=== PATIENT | female | born 1945 | race Hispanic/Latino ===

== ENCOUNTER 2016-11-18 13:20 | Emergency (ER) | payer OTHER ==
[~2016-11-18] VITALS: Ht 167.6 cm; Wt 75.3 kg
--- NOTE | 2016-11-18 13:49 | ED GI/GU/ABDOMINAL COMPLAINT ---
History of Present Illness General Chief Complaint: Nausea, Vomiting, Diarrhea Stated Complaint: VOMITING Source: family, user experience architect Exam Limitations: clinical condition, dementia Vital Signs & Intake/Output Vital Signs & Intake/Output Vital Signs Date Time Temp Pulse Resp B/P Pulse O2 O2 Flow FiO2 Ox Delivery Rate 11/18 1614 97.6 88 18 119/64 96 Room Air 11/18 1423 Room Air 11/18 1329 97.7 83 20 139/82 97 Room Air Allergies Coded Allergies: No Known Allergies (11/18/16) Reconcile Medications Alprazolam 0.5 MG TABLET 1 TAB PO Q8 ANXIETY (Reported) Amlodipine Besylate 5 MG TABLET 1 TAB PO DAILY HEART (Reported) Aspirin (Ecotrin*) 81 MG TABLET.DR 1 TAB PO DAILY HEART HEALTH (Reported) Atorvastatin Calcium (Lipitor) 20 MG TABLET 1 TAB PO DAILY CHOLESTEROL ( Reported) Donepezil HCl (Aricept) 10 MG TABLET 1 TAB PO QPM DEMENTIA (Reported) Gabapentin 100 MG CAPSULE 1 CAP PO QPM NEUROPATHY (Reported) Galantamine HBr (Razadyne ER) 16 MG CAP24H.PEL 1 CAP PO DAILY UNKNOWN ( Reported) Hydrochlorothiazide 25 MG TABLET 1 TAB PO DAILY WATER PILL (Reported) Hyoscyamine (Levsin) 0.125 MG TABLET 1 TAB PO Q4 PRN ABDOMINAL DISCOMFORT Irbesartan (Avapro) 300 MG TABLET 1 TAB PO DAILY HEART (Reported) Lisinopril 20 MG TABLET 1 TAB PO DAILY HEART (Reported) Memantine HCl (Namenda) 10 MG TABLET 1 TAB PO BID ALZHEIMER (Reported) Nabumetone 750 MG TABLET 1 TAB PO BID ARTHRITIS (Reported) Ondansetron (Zofran Odt) 4 MG TAB.RAPDIS 1 TAB SL TID PRN NAUSEA Triage Note: PT TRAVELED HERE FROM [place] YESTERDAY AND C/O ABDOMINAL PAIN WITH N/V Triage Nurses Notes Reviewed? yes ? N Is pt currently ? No Onset: Gradual Duration: hour(s): (24) Quality/Severity: sharpness Severity Numbers: 8 Location: epigastric Radiation: no radiation Activities at Onset: none Prior Abdominal Problems: similar symptoms No Modifying Factors: none HPI: Patient is a 71-year-old female with history of hypertension hyperlipidemia and dementia presenting to the emergency department with family members with chief complaint of nausea and vomiting that started yesterday. Unable to keep anything down since yesterday. Also reporting upper abdominal pain. She had some chills last night. She did recently come home from [place] yesterday on an airplane. On care of anyone specific. No diarrhea. Denies any urinary frequency urgency or dysuria. She is moving up from [place] to live with her daughter here in the [place]. They are planning on establishing insurance this coming week. She does not currently have a primary care physician. She's been taking medications as prescribed. Denies chest pain or shortness of breath. (LIZZY SRINIVASAN) Past History Travel History Traveled to [facility] past 21 day No Medical History Any Pertinent Medical History? see below for history Neurological: Alzheimer's disease, dementia Cardiovascular: hypertension, hyperlipidemia Surgical History Surgical History: cholecystectomy, LEFT NEPHRECTOMY Psychosocial History What is your primary language Canadian Tobacco Use: Never used ETOH Use: denies use Illicit Drug Use: denies illicit drug use Family History Hx Contributory? No (LIZZY SRINIVASAN) Review of Systems Review of Systems Constitutional: Reports: chills, malaise. Comments Review of systems: See HPI, All other systems negative. Constitutional, no weight loss HEENT: No visual changes no sore throat no congestion Cardiovascular: No palpitation , orthopnea or ankle swelling Skin, no jaundice no rashes Respiratory: No dyspnea cough sputum or hemoptysis GI: No DIARRHEA : No dysuria No hematuria Muscle skeletal: no back pain, no neck pain, Neurologic: No numbness no INCREASED confusion Psych: No stress anxiety or depression,. Heme/endocrine: No bruising no bleeding no polyuria or polydipsia Immunology: No splenectomy or history of AIDS (LIZZY SRINIVASAN) Physical Exam Physical Exam General Appearance: well developed/nourished, no apparent distress, alert, awake , FATIGUED Gastrointestinal: normal bowel sounds, soft, tenderness Comments: Well-developed well-nourished person in no acute distress HEENT: Pupils equally round and reactive to light and accommodation. Nose is atraumatic. External auditory canal and Tympanic membranes clear. Pharynx normal. No swelling or edema. VERY DRY ORAL MUCOSA. Neck: Supple, no lymphadenopathy, normal range of motion without pain or tenderness Back: Nontender, no CVA tenderness. Full range of motion Cardiovascular: Regular rate and rhythms no murmurs rubs or gallops, normal JVP Respiratory: Chest IS TENDER TO PALPATION ALONG RIGHT STERNAL BORDER. No respiratory distress.breath sounds clear to auscultation bilaterally Abdomen: Soft, MILD EPIGASTRIC PAIN TO PALPATION, nondistended, no appreciable organomegaly. Normal bowel sounds. No ascites Extremity: Nontender to palpation. Pedal pulses are 2+ bilaterally. No edema in the lower extremities. Neuro: Alert oriented TO PERSON, BASELINE FOR THIS PT. Skin: No appreciable rash on exposed skin, skin is warm and dry. Psych: Mood and affect is normal, memory and judgment is normal. Core Measures ACS in differential dx? Yes Severe Sepsis Present: No Septic Shock Present: No (SOY ALONSO,LIZZY) Progress Differential Diagnosis: DEHYDRATION, WHICH ONLY ABNORMALITY, GASTRITIS, INFLUENZA, ACUTE KIDNEY INJURY, uti Plan of Care: Orders Procedure Date/time Status RAPID VIRAL INFLUENZA A 11/18 1359 Complete LACTIC ACID 11/18 1346 Complete URINALYSIS 11/18 1345 Complete TROPONIN LEVEL 11/18 1345 Complete LIPASE 11/18 1345 Complete COMPREHENSIVE METABOLIC PANEL 11/18 1345 Complete CBC WITHOUT DIFFERENTIAL 11/18 1345 Complete AMYLASE 11/18 1345 Complete EKG 11/18 1345 Active Laboratory Tests 11/18/16 1515: Urine Color YEL, Urine Clarity CLEAR, Urine pH 6.0, Ur Specific [place] 1.020, Urine Protein NEG, Urine Ketones TRACE H, Urine Nitrite NEG, Urine Bilirubin NEG, Urine Urobilinogen 0.2, Ur Leukocyte Esterase NEG, Ur Microscopic EXAM NOT REQUIRED, Urine Hemoglobin NEG, Urine Glucose NEG 11/18/16 1404: Lactic Acid 1.0 11/18/16 1404: Anion Gap 12, Estimated GFR > 60, BUN/Creatinine Ratio 21.3, Glucose 127 H, Calcium 9.7, Total Bilirubin 0.8, AST 17, ALT 36, Alkaline Phosphatase 71, Troponin I < 0.01, Total Protein 7.1, Albumin 4.3, Globulin 2.8, Albumin/ Globulin Ratio 1.5, Amylase 51, Lipase 75, CBC w Diff NO MAN DIFF REQ, RBC 4.75, MCV 89.3, MCH 29.2, RDW 13.9, MPV 8.9, Gran % 83.7 H, Lymphocytes % 9.4 L, Monocytes % 5.3, Eosinophils % 1.2, Basophils % 0.4, Absolute Granulocytes 6.5, Absolute Lymphocytes 0.7 L, Absolute Monocytes 0.4, Absolute Eosinophils 0.1, Absolute Basophils 0, PUBS MCHC 32.7 L Microbiology 11/18 1415 NASOPHARYN: Influenza Virus A & B Rapid Smear - COMP Initial ED EKG: SINUS RHYTHM AT 76 BEATS FROM AN EYE, LEFT VENTRICULAR HYPERTROPHY Comments: Per family patient has had vomiting with nausea overnight. Recently traveling home from [place]. No diarrhea. Patient is afebrile here. Mild reproducible epigastric pain on exam. Patient otherwise acting at baseline per family. Patient will be medicated with IV hydration, antiemetics. We will assess CBC, CPK to rule out any type of dehydration, acute kidney injury or electrolyte abnormality. 11/18/2016 4:23:15 PM family informed of all lab work results. Slight decrease in potassium which is likely from vomiting. Patient was given 40 mEq of potassium by mouth. Tolerating darin abimael without vomiting. Soak with case management as family requested home services. Patient needs to set up insurance prior to setting up home services. They will take care of that on Sunday. They were given information and follow-up primary care physicians. D/W DR DURAN AND HE AGREES WITH PLAN. (LIZZY SRINIVASAN) Departure Departure Time of Disposition: 1609 Disposition: HOME OR SELF CARE Condition: Stable Clinical Impression Primary Impression: Nausea and vomiting Qualifiers: Vomiting type: unspecified Vomiting Intractability: non-intractable Qualified Code: R11.2 - Nausea with vomiting, unspecified Secondary Impressions: Hypokalemia Referrals: MARJORIE MERCADO,HEENA MEREDITH MD,[facility] PATIENT HAS NO PRIMARY CARE DR (PCP/Family) Additional Instructions: Follow-up with the primary care physician call to make an appointment after you establish insurance on Sunday. Take Zofran as prescribed for nausea. Increase fluids. Take Levsin to help with abdominal discomfort. Return for worsening symptoms or concerns. Increase potassium intake over the next several days. Departure Forms: Customer Survey General Discharge Information Prescriptions: Current Visit Scripts Hyoscyamine (Levsin) 1 TAB PO Q4 PRN ABDOMINAL DISCOMFORT #20 TAB Ondansetron (Zofran Odt) 1 TAB SL TID PRN NAUSEA #10 TAB (LIZZY SRINIVASAN) PA/DIETIST Co-Sign Statement Statement: ED Attending supervision documentation- [X] I saw and evaluated the patient. I have also reviewed all the pertinent lab results and diagnostic results. I agree with the findings and the plan of care as documented in the PA's/DIETIST's documentation. [X] I have reviewed the ED Record and agree with the PA's/DIETIST's documentation. [] Additions or exceptions (if any) to the PAs/DIETIST's note and plan are summarized below: [] (RENEE ENRIQUEZ,NONA Boyer)
[2016-11-18 14:22] LABS: ABSOLUTE BASOPHIL COUNT 0 /CUMM (0.0-0.2); ABSOLUTE EOSINOPHIL COUNT 0.1 /CUMM (0.0-0.7); ABSOLUTE GRANULOCYTE CT 6.5 /CUMM (1.4-6.5); ABSOLUTE LYMPH COUNT 0.7 /CUMM (1.2-3.4); ABSOLUTE MONOCYTE COUNT 0.4 /CUMM (0.10-0.60); BASOPHIL % 0.4 % (0.0-2.0); EOSINOPHIL % 1.2 % (0-5); HEMATOCRIT 42.4 % (37-47); MEAN CORPUSCULAR HGB 29.2 PG (27.0-31.0); MEAN CORPUSCULAR HGB CONC 32.7 G/DL (33.0-37.0); MEAN CORPUSCULAR VOLUME 89.3 FL (81.0-99.0); MEAN PLATELET VOLUME 8.9 FL (7.4-10.4); PLATELET COUNT 240 /CUMM (130-400); RBC DISTRIBUTION WIDTH 13.9 % (11.5-14.5); RED BLOOD CELL CT 4.75 /CUMM (4.20-5.40); WHITE BLOOD CELL COUNT 7.8 /CUMM (4.8-10.8)
[2016-11-18] MEDS ORDERED: HYDROCHLOROTHIA25 M1 PO (14:46)
[2016-11-18] MEDS ORDERED: RAZADYNE ER16 M1 PO (14:46)
[2016-11-18] MEDS ORDERED: ASPIRIN EC81 M1 PO (14:46)
[2016-11-18] MEDS ORDERED: ALPRAZOLAM0.5 M4 PO (14:47)
[2016-11-18] MEDS ORDERED: AMLODIPINE BESYL5 M1 PO (14:48)
[2016-11-18] MEDS ORDERED: LIPITOR20 M2 PO (14:48)
[2016-11-18] MEDS ORDERED: GABAPENTIN100 M2 PO (14:49)
[2016-11-18] MEDS ORDERED: NAMENDA10 M2 PO (14:50)
[2016-11-18] MEDS ORDERED: LISINOPRIL20 M1 PO (14:50)
[2016-11-18] MEDS ORDERED: AVAPRO300 M1 PO (14:50)
[2016-11-18] MEDS ORDERED: ARICEPT10 M1 PO (14:51)
[2016-11-18] MEDS ORDERED: NABUMETONE750 M1 PO (14:52)
[2016-11-18 15:01] LABS: GRANULOCYTE % 83.7 % (42.2-75.2)
[2016-11-18 16:14] VITALS: BP 119/64
[2016-11-18] MEDS ORDERED: ZOFRAN ODT4 M1 SL (16:15)
[2016-11-18] MEDS ORDERED: LEVSIN0.125 M1 PO (16:15)
== END 2016-11-18 16:30 ==
LOC: ERH
PROVIDERS: Physician Assistant
DX: E87.6 Hypokalemia (principal); R11.2 Nausea with vomiting, unspecified
CPT/HCPCS: 81003; 87804; 87804-59; 93005; 93010; 96374; J2765

== ENCOUNTER 2016-11-28 10:34 | Emergency (ER) | payer OTHER ==
[~2016-11-28] VITALS: Ht 160 cm; Wt 76.7 kg
[~2016-11-28 10:34] MED LIST: ALPRAZOLAM0.5 M4 PO; AMLODIPINE BESYL5 M1 PO; ARICEPT10 M1 PO; ASPIRIN EC81 M1 PO; AVAPRO300 M1 PO; GABAPENTIN100 M2 PO; HYDROCHLOROTHIA25 M1 PO; LEVSIN0.125 M1 PO; LIPITOR20 M2 PO; LISINOPRIL20 M1 PO; NABUMETONE750 M1 PO; NAMENDA10 M2 PO; RAZADYNE ER16 M1 PO; ZOFRAN ODT4 M1 SL
[2016-11-28 11:26] LABS: ABSOLUTE BASOPHIL COUNT 0 /CUMM (0.0-0.2); ABSOLUTE EOSINOPHIL COUNT 0.2 /CUMM (0.0-0.7); ABSOLUTE GRANULOCYTE CT 5.5 /CUMM (1.4-6.5); ABSOLUTE MONOCYTE COUNT 0.5 /CUMM (0.10-0.60); BASOPHIL % 0.4 % (0.0-2.0); EOSINOPHIL % 2.2 % (0-5); GRANULOCYTE % 76.4 % (42.2-75.2); HEMATOCRIT 39.5 % (37-47); MEAN CORPUSCULAR HGB 29.4 PG (27.0-31.0); MEAN CORPUSCULAR HGB CONC 33.5 G/DL (33.0-37.0); MEAN CORPUSCULAR VOLUME 87.6 FL (81.0-99.0); MEAN PLATELET VOLUME 9.1 FL (7.4-10.4); PLATELET COUNT 253 /CUMM (130-400); RBC DISTRIBUTION WIDTH 13.5 % (11.5-14.5); RED BLOOD CELL CT 4.51 /CUMM (4.20-5.40); WHITE BLOOD CELL COUNT 7.2 /CUMM (4.8-10.8)
--- NOTE | 2016-11-28 11:47 | ED GI/GU/ABDOMINAL COMPLAINT ---
History of Present Illness General Chief Complaint: Abdominal Pain/Flank Pain Stated Complaint: ABD PAIN SEEN LAST WEEK FOR SAME Source: patient Exam Limitations: no limitations Allergies Coded Allergies: No Known Allergies (11/18/16) Reconcile Medications Alprazolam 0.5 MG TABLET 1 TAB PO Q8 ANXIETY (Reported) Amlodipine Besylate 5 MG TABLET 1 TAB PO DAILY HEART (Reported) Aspirin (Ecotrin*) 81 MG TABLET.DR 1 TAB PO DAILY HEART HEALTH (Reported) Atorvastatin Calcium (Lipitor) 20 MG TABLET 1 TAB PO DAILY CHOLESTEROL ( Reported) Donepezil HCl (Aricept) 10 MG TABLET 1 TAB PO QPM DEMENTIA (Reported) Gabapentin 100 MG CAPSULE 1 CAP PO QPM NEUROPATHY (Reported) Galantamine HBr (Razadyne ER) 16 MG CAP24H.PEL 1 CAP PO DAILY UNKNOWN ( Reported) Hydrochlorothiazide 25 MG TABLET 1 TAB PO DAILY WATER PILL (Reported) Hyoscyamine (Levsin) 0.125 MG TABLET 1 TAB PO Q4 PRN ABDOMINAL DISCOMFORT Irbesartan (Avapro) 300 MG TABLET 1 TAB PO DAILY HEART (Reported) Lisinopril 20 MG TABLET 1 TAB PO DAILY HEART (Reported) Memantine HCl (Namenda) 10 MG TABLET 1 TAB PO BID ALZHEIMER (Reported) Nabumetone 750 MG TABLET 1 TAB PO BID ARTHRITIS (Reported) Ondansetron (Zofran Odt) 4 MG TAB.RAPDIS 1 TAB SL TID PRN NAUSEA Triage Note: PT WAS SEEN 1.5 WEEKS AGO FOR N/V. PT IS C/O ABD PAIN DGT STATES SHE HAS DEMENTIA AND HAS NOT BEEN ABLE TO MOVE HER BOWELS. Triage Nurses Notes Reviewed? yes ? N Is pt currently ? No HPI: This patient is a 71-year-old female with a past medical history including Alzheimer's dementia who presented to the emergency department today accompanied by her daughter for evaluation of constipation and abdominal pain. The patient' s daughter reported that the patient was seen here approximately a week and a half ago. This was the day after she arrived in the [facility] from [place] and was having nausea and vomiting. The patient's daughter reported that the nausea and vomiting has subsided. However, she has not had a bowel movement since that time. The patient's daughter does not think she has been passing gas , but she has been burping. She has also been complaining of lower abdominal pain. The patient was unable to quantify or describe the pain. The patient is a poor historian due to her underlying dementia and laying which barrier. The patient's daughter deny the patient having any fevers or complaints of any other pain. (ROBERT CEJA PA-C) Vital Signs & Intake/Output Vital Signs & Intake/Output Vital Signs Date Time Temp Pulse Resp B/P B/P Pulse O2 O2 Flow FiO2 Mean Ox Delivery Rate 11/28 1320 97.5 77 18 169/103 97 Room Air 11/28 1043 97.0 86 16 143/89 95 Room Air Past History Travel History Traveled to [place] past 21 day No Medical History Any Pertinent Medical History? see below for history Neurological: Alzheimer's disease, dementia Cardiovascular: hypertension, hyperlipidemia Surgical History Surgical History: cholecystectomy, LEFT NEPHRECTOMY Psychosocial History What is your primary language Polish Tobacco Use: Quit >30 days ago ETOH Use: denies use Illicit Drug Use: denies illicit drug use Family History Hx Contributory? No (ROBERT CEJA PA-C) Review of Systems Review of Systems Constitutional: Reports: no symptoms. Cardiovascular: Reports: no symptoms. GI: Reports: see HPI. Genitourinary: Reports: no symptoms. Musculoskeletal: Reports: no symptoms. Skin: Reports: no symptoms. Comments Unable to obtain full review of systems this patient's underlying dementia (ROBERT CEJA PA-C) Physical Exam Physical Exam Gastrointestinal: normal bowel sounds, soft, NONDISTENDED. nO ORGANOMEGALY. tENDERNESS TO PALPATION IN THE RIGHT UPPER QUADRANT WITH NO REBOUND OR GUARDING. nO mCbURNEY'S POINT TENDERNESS. nEGATIVE Rucker SIGN. nO MASSES APPRECIATED Comments: Well-developed well-nourished person in no acute distress HEENT: Normal EENT exam, head normocephalic, moist mucous membranes Pupils equally round and reactive to light. Neck: Supple with no lymphadenopathy Back: Normal inspection Cardiovascular: Regular rate and rhythm with no murmurs, rubs, or gallops Respiratory: Chest nontender. No respiratory distress. Breath sounds clear to auscultation bilaterally Extremity: Normal and equal pulses Neuro: Alert oriented to person, cranial nerves II through XII grossly intact. Skin: No appreciable rash on exposed skin, skin is warm and dry. Psych: Mood and affect is normal Core Measures ACS in differential dx? No Severe Sepsis Present: No Septic Shock Present: No (ROBERT CEJA PA-C) Progress Differential Diagnosis: AAA, AMI, appendicitis, biliary colic, bowel obstruction , colon cancer, cholecystitis, diverticulitis, gastritis, hepatitis, ischemic bowel, inflamm bowel dis, kidney stone, pancreatitis, PUD/GERD, perforated viscous, UTI/pyelo Diagnostic Imaging: Viewed by Me: CT Scan. Discussed w/RAD: CT Scan. Radiology Impression: PATIENT: SOILA JOE PRESENT AGE: 71 PATIENT ACCOUNT NO: [id number] : 47 LOCATION: [facility] ORDERING PHYSICIAN: ROBERT CEJA PA-C SERVICE DATE: 11/28/16 EXAM TYPE: CAT - CT ABD & PELVIS W/O IV CONTRAS EXAMINATION: CT ABDOMEN AND PELVIS WITHOUT CONTRAST CLINICAL INFORMATION: Abdominal pain and constipation. Evaluate for bowel obstruction. COMPARISON: None TECHNIQUE: Multidetector volumetric imaging was performed from the superior aspect of the liver through the pubic symphysis. Sagittal and coronal reformatted images were obtained on the technologist's workstation. DLP: 726 mGy-cm FINDINGS: LUNG BASES: Cardiomegaly and calcific atherosclerosis of the coronary arteries. Small amount of pericardial fluid is noted. There is atherosclerotic calcification of the visualized thoracic aorta. Scattered linear opacities of atelectasis in the bases. LIVER, GALLBLADDER, AND BILIARY TREE: The liver is normal in size, shape, and attenuation. No focal hepatic lesion or biliary ductal dilatation. The gallbladder is unremarkable with no evidence of radiopaque gallstones, gallbladder wall thickening, or pericholecystic inflammatory changes. PANCREAS: Unremarkable. SPLEEN: Unremarkable. ADRENAL GLANDS: Unremarkable. KIDNEYS AND URETERS: Right kidney has normal size, cortical thickness and attenuation. No focal parenchymal lesion , hydronephrosis or nephrolithiasis. Left kidney is surgically absent. No soft tissue mass or lymphadenopathy within the surgical bed. BLADDER: Unremarkable. GASTROINTESTINAL TRACT: Ojywhlnv-my-xuvdn hiatal hernia. Bowel loops are normal in caliber. No evidence of excessive stool within the colon. No pericolonic fat stranding. The appendix is normal. No ascites or pneumoperitoneum. ABDOMINAL WALL: No acute findings within the abdominal wall. Patient has a large body habitus. There is a fat-containing left inguinal hernia. LYMPH NODES: No pathologic sized lymph nodes within the abdomen or pelvis. VASCULAR: There is atherosclerotic calcification of the abdominal aorta and iliac arteries without aneurysm. Also, there is extensive atherosclerosis of the proximal superior mesenteric artery PELVIC VISCERA: The uterus is grossly unremarkable. No evidence of pelvic mass, free fluid or iliac lymphadenopathy. OSSEOUS STRUCTURES : No acute, suspicious osseous abnormalities. Bone density appears diffusely decreased. IMPRESSION: 1. Kzoazzqc-oi-bfeoi hiatal hernia. 2. No acute imaging findings along the gastrointestinal tract. No evidence of appendicitis or bowel obstruction. 3. Calcific atherosclerotic disease of the aorta, SMA and iliac arteries without aneurysm. DICTATED BY: PALOMA OLSEN MD DATE/TIME DICTATED:1337 PAINTLESS DENT REPAIR TECHNICIAN:TRISTA DATE/TIME TRANSCRIBED:11/28/161337 CONFIDENTIAL, DO NOT COPY WITHOUT APPROPRIATE AUTHORIZATION. <Electronically signed in Other Vendor System> SIGNED BY: PALOMA OLSEN MD 11/28/16 1347 Initial ED EKG: none Comments: 11/28/2016 12:36:30 PM: Dr. Hairston was at the patient's bedside for face to face evaluation (BRENNA STALLWORTH,ROBERT) Plan of Care: Orders Procedure Date/time Status Heart Healthy Diet 11/28 D Active LACTIC ACID 11/28 1405 Active Enema 11/28 1352 Active TROPONIN LEVEL 11/28 1105 Complete LIPASE 11/28 1105 Complete LACTIC ACID 11/28 1105 Complete DIRECT BILIRUBIN 11/28 1105 Complete COMPREHENSIVE METABOLIC PANEL 11/28 1105 Complete CBC WITHOUT DIFFERENTIAL 11/28 1105 Complete AMYLASE 11/28 1105 Complete Laboratory Tests 11/28/16 1120: Anion Gap 11, Estimated GFR > 60, BUN/Creatinine Ratio 15.6, Glucose 92, Lactic Acid 1.1, Calcium 9.4, Total Bilirubin 0.7, Direct Bilirubin 0.4, AST 18, ALT 30 , Alkaline Phosphatase 75, Troponin I < 0.01, Total Protein 6.6, Albumin 3.9, Globulin 2.7, Albumin/Globulin Ratio 1.4, Amylase 53, Lipase 79, CBC w Diff NO MAN DIFF REQ, RBC 4.51, MCV 87.6, MCH 29.4, RDW 13.5, MPV 9.1, Gran % 76.4 H, Lymphocytes % 13.8 L, Monocytes % 7.2, Eosinophils % 2.2, Basophils % 0.4, Absolute Granulocytes 5.5, Absolute Lymphocytes 1.0 L, Absolute Monocytes 0.5, Absolute Eosinophils 0.2, Absolute Basophils 0, PUBS MCHC 33.5 11/28/16 1105: Urine Color Cancelled, Urine Clarity Cancelled, Urine pH Cancelled, Ur Specific [place] Cancelled, Urine Protein Cancelled, Urine Ketones Cancelled, Urine Nitrite Cancelled, Urine Bilirubin Cancelled, Urine Urobilinogen Cancelled, Ur Leukocyte Esterase Cancelled, Ur Microscopic Cancelled, Urine Hemoglobin Cancelled, Urine Glucose Cancelled Departure Departure Disposition: HOME OR SELF CARE Condition: Stable Clinical Impression Primary Impression: Constipation Qualifiers: Constipation type: unspecified constipation type Qualified Code: K59.00 - Constipation, unspecified Referrals: PATIENT HAS NO PRIMARY CARE DR (PCP/Family) Additional Instructions: Use [id number] MiraLAX. Be sure to maintain a high fiber diet. Follow-up with the primary care physician. Return for any worsening symptoms or concerns. Departure Forms: Customer Survey General Discharge Information (ROBERT CEJA PA-C) PA/MANAGER INTERNATIONAL Co-Sign Statement Statement: ED Attending supervision documentation- [X] I saw and evaluated the patient. I have also reviewed all the pertinent lab results and diagnostic results. I agree with the findings and the plan of care as documented in the PA's/MANAGER INTERNATIONAL's documentation. [] I have reviewed the ED Record and agree with the PA's/MANAGER INTERNATIONAL's documentation. [] Additions or exceptions (if any) to the PAs/MANAGER INTERNATIONAL's note and plan are summarized below: [] (ANIBAL ENRIQUEZ,JALYN Euceda)
--- NOTE | 2016-11-28 13:47 | CT SCAN REPORT ---
EXAMINATION: CT ABDOMEN AND PELVIS WITHOUT CONTRAST CLINICAL INFORMATION: Abdominal pain and constipation. Evaluate for bowel obstruction. COMPARISON: None TECHNIQUE: Multidetector volumetric imaging was performed from the superior aspect of the liver through the pubic symphysis. Sagittal and coronal reformatted images were obtained on the technologist's workstation. DLP: 726 mGy-cm FINDINGS: LUNG BASES: Cardiomegaly and calcific atherosclerosis of the coronary arteries. Small amount of pericardial fluid is noted. There is atherosclerotic calcification of the visualized thoracic aorta. Scattered linear opacities of atelectasis in the bases. LIVER, GALLBLADDER, AND BILIARY TREE: The liver is normal in size, shape, and attenuation. No focal hepatic lesion or biliary ductal dilatation. The gallbladder is unremarkable with no evidence of radiopaque gallstones, gallbladder wall thickening, or pericholecystic inflammatory changes. PANCREAS: Unremarkable. SPLEEN: Unremarkable. ADRENAL GLANDS: Unremarkable. KIDNEYS AND URETERS: Right kidney has normal size, cortical thickness and attenuation. No focal parenchymal lesion, hydronephrosis or nephrolithiasis. Left kidney is surgically absent. No soft tissue mass or lymphadenopathy within the surgical bed. BLADDER: Unremarkable. GASTROINTESTINAL TRACT: Sngvfbtt-qn-xlkav hiatal hernia. Bowel loops are normal in caliber. No evidence of excessive stool within the colon. No pericolonic fat stranding. The appendix is normal. No ascites or pneumoperitoneum. ABDOMINAL WALL: No acute findings within the abdominal wall. Patient has a large body habitus. There is a fat-containing left inguinal hernia. LYMPH NODES: No pathologic sized lymph nodes within the abdomen or pelvis. VASCULAR: There is atherosclerotic calcification of the abdominal aorta and iliac arteries without aneurysm. Also, there is extensive atherosclerosis of the proximal superior mesenteric artery PELVIC VISCERA: The uterus is grossly unremarkable. No evidence of pelvic mass, free fluid or iliac lymphadenopathy. OSSEOUS STRUCTURES: No acute, suspicious osseous abnormalities. Bone density appears diffusely decreased. IMPRESSION: 1. Jxefsrsb-iy-exead hiatal hernia. 2. No acute imaging findings along the gastrointestinal tract. No evidence of appendicitis or bowel obstruction. 3. Calcific atherosclerotic disease of the aorta, SMA and iliac arteries without aneurysm.
[2016-11-28 15:31] VITALS: BP 148/86
== END 2016-11-28 15:31 ==
LOC: ERH 10:34
PROVIDERS: Physician Assistant
DX: K59.00 Constipation, unspecified (principal)
CPT/HCPCS: 74176

== ENCOUNTER 2016-12-19 21:20 | Observation (INO) | payer OTHER, MEDICARE ==
[~2016-12-19] VITALS: Ht 160 cm; Wt 76.7 kg
--- NOTE | 2016-12-19 21:30 | NUR ---
PT DENNISE FROM HOME WITH COMPLAINTS OF ABD PAIN AND CONSTIPATION PER EMS; PT WAS SEEN HERE 2 WEEKS AGO FOR THE SAME. PT IS ONLY WOLOF SPEAKING, PER EMS, FAMILY IS ON THEIR WAY.
--- NOTE | 2016-12-19 21:42 | NUR ---
PT'S FAMILY HAS ARRIVED. CELESTE WYNN AT BEDSIDE FOR EVAL.
--- NOTE | 2016-12-19 22:01 | NUR ---
PT TO CAT SCAN
--- NOTE | 2016-12-19 22:28 | NUR ---
SST X2, LAV, AND BLUE SENT TO LAB.
[2016-12-19 22:34] LABS: ABSOLUTE BASOPHIL COUNT 0 /CUMM (0.0-0.2); ABSOLUTE EOSINOPHIL COUNT 0.1 /CUMM (0.0-0.7); ABSOLUTE GRANULOCYTE CT 7.1 /CUMM (1.4-6.5); ABSOLUTE LYMPH COUNT 0.9 /CUMM (1.2-3.4); ABSOLUTE MONOCYTE COUNT 0.4 /CUMM (0.10-0.60); BASOPHIL % 0.2 % (0.0-2.0); EOSINOPHIL % 1.1 % (0-5); GRANULOCYTE % 83.1 % (42.2-75.2); HEMATOCRIT 39.6 % (37-47); MEAN CORPUSCULAR HGB 29.2 PG (27.0-31.0); MEAN CORPUSCULAR HGB CONC 33.4 G/DL (33.0-37.0); MEAN CORPUSCULAR VOLUME 87.4 FL (81.0-99.0); PLATELET COUNT 238 /CUMM (130-400); RBC DISTRIBUTION WIDTH 13.1 % (11.5-14.5); RED BLOOD CELL CT 4.53 /CUMM (4.20-5.40); WHITE BLOOD CELL COUNT 8.5 /CUMM (4.8-10.8)
--- NOTE | 2016-12-19 22:35 | CT SCAN REPORT ---
EXAMINATION: CT ABDOMEN AND PELVIS WITHOUT CONTRAST CLINICAL INFORMATION: Abdominal pain. COMPARISON: CT 11/28/2016. TECHNIQUE: Multidetector volumetric imaging was performed from the superior aspect of the liver through the pubic symphysis. Sagittal and coronal reformatted images were obtained on the technologist's workstation. DLP: 396 mGy-cm. FINDINGS: LUNG BASES: The visualized lung bases are unremarkable. Arterial calcification noted in the coronary vessels and thoracic aorta. Trace pericardial fluid, unchanged. LIVER, GALLBLADDER, AND BILIARY TREE: The liver is normal in size, shape, and attenuation. No focal hepatic lesion or biliary ductal dilatation is present. The gallbladder is unremarkable with no evidence of radiopaque gallstones, gallbladder wall thickening, or obvious pericholecystic inflammatory changes. PANCREAS: Unremarkable. SPLEEN: Small. No focal abnormality. ADRENAL GLANDS: Unremarkable. KIDNEYS AND URETERS: Left kidney surgically absent. Right kidney normal. No mass or stones. BLADDER: Unremarkable. GASTROINTESTINAL TRACT: Moderate-sized hiatal hernia, unchanged. Small bowel normal. Colon normal. Appendix normal. ABDOMINAL WALL: No significant hernia is appreciated. LYMPH NODES: Normal. VASCULAR: Moderate arterial calcification throughout. PELVIC VISCERA: Unremarkable. OSSEOUS STRUCTURES: Minimal spondylosis of the lumbar sacral spine. IMPRESSION: 1. No acute abnormality or definite etiology for patient's reported abdominal pain. There has been no change compared with most recent CT in November 2016. 2. Moderate calcific atherosclerotic changes throughout. Trace pericardial fluid, unchanged. 3. Postsurgical changes with left kidney surgically absent. 4. Moderate-sized hiatal hernia, unchanged.
--- NOTE | 2016-12-20 00:29 | ED GI/GU/ABDOMINAL COMPLAINT ---
History of Present Illness General Chief Complaint: Abdominal Pain/Flank Pain Stated Complaint: ABD PAIN Source: patient, family, old records Exam Limitations: dementia Vital Signs & Intake/Output Vital Signs & Intake/Output Vital Signs Date Time Temp Pulse Resp B/P B/P Pulse O2 O2 Flow FiO2 Mean Ox Delivery Rate 12/21 1422 97.4 86 20 120/70 97 12/21 1032 76 120/80 ED Intake and Output 12/22 0000 12/21 1200 Intake Total 410 240 Output Total Balance 410 240 Intake, Oral 410 240 Number 1 Bowel Movements Allergies Coded Allergies: No Known Allergies (11/18/16) Triage Note: PT BIBA FROM HOME WITH COMPLAINTS OF ABD PAIN AND CONSTIPATION PER EMS; PT WAS SEEN HERE 2 WEEKS AGO FOR THE SAME. PT IS ONLY [place] SPEAKING, PER EMS, FAMILY IS ON THEIR WAY. Triage Nurses Notes Reviewed? yes ? n Is pt currently ? No Onset: Abrupt Duration: day(s):, constant Timing: recent history No Modifying Factors: none HPI: 71-year-old female comes into emergency room for no bowel movements and not urinating for the past day. Patient has not had a bowel movement in almost 2 weeks. Family has been giving lyge-npx-nfyyspa supplements with no relief. Patient has not urinated today according to the daughter. No fever. No chills. No vomiting. History of Alzheimer's dementia. History is very limited. (KHURRAM ALONSO,KINGSLEY) Reconcile Medications Alprazolam 0.5 MG TABLET 1 TAB PO Q8 ANXIETY (Reported) Amlodipine Besylate 5 MG TABLET 1 TAB PO DAILY HEART (Reported) Aspirin (Ecotrin*) 81 MG TABLET.DR 1 TAB PO DAILY HEART HEALTH (Reported) Atorvastatin Calcium (Lipitor) 20 MG TABLET 1 TAB PO DAILY CHOLESTEROL ( Reported) Docusate Sodium (Colace) 100 MG CAPSULE 1 CAP PO BID PRN constipation Donepezil HCl (Aricept) 10 MG TABLET 1 TAB PO QPM DEMENTIA (Reported) Gabapentin 100 MG CAPSULE 1 CAP PO QPM NEUROPATHY (Reported) Galantamine HBr (Razadyne ER) 16 MG CAP24H.PEL 1 CAP PO DAILY UNKNOWN ( Reported) Lisinopril 20 MG TABLET 1 TAB PO DAILY HEART (Reported) Memantine HCl (Namenda) 10 MG TABLET 1 TAB PO BID ALZHEIMER (Reported) Nabumetone 750 MG TABLET 1 TAB PO BID ARTHRITIS (Reported) Ondansetron (Zofran Odt) 4 MG TAB.RAPDIS 1 TAB SL TID PRN NAUSEA Polyethylene Glycol 3350 (Miralax) 17 GRAM POWD.PACK 1 PAC PO DAILY constipation dissolve in water (ANIBAL ENRIQUEZ,JALYN Euceda) Past History Travel History Traveled to [place] past 21 day No Medical History Any Pertinent Medical History? see below for history Neurological: Alzheimer's disease, dementia Cardiovascular: hypertension, hyperlipidemia Surgical History Surgical History: cholecystectomy, LEFT NEPHRECTOMY Psychosocial History What is your primary language Malay Tobacco Use: Refused to answer Family History Hx Contributory? No (KINGSLEY STOKES) Review of Systems Review of Systems Constitutional: Reports: no symptoms. EENTM: Reports: no symptoms. Respiratory: Reports: no symptoms. Cardiovascular: Reports: no symptoms. GI: Reports: see HPI. Genitourinary: Reports: see HPI. Musculoskeletal: Reports: no symptoms. Skin: Reports: no symptoms. Neurological/Psychological: Reports: no symptoms. Hematologic/Endocrine: Reports: no symptoms. Immunologic/Allergic: Reports: no symptoms. All Other Systems: Reviewed and Negative (KINGSLEY STOKES) Physical Exam Physical Exam General Appearance: well developed/nourished, alert, awake Head: atraumatic, normal appearance Eyes: Bilateral: normal appearance, EOMI. Ears, Nose, Throat, Mouth: hearing grossly normal, moist mucous membrane Neck: normal inspection Respiratory: normal breath sounds, no respiratory distress Cardiovascular: regular rate/rhythm Gastrointestinal: soft, non-tender Rectal: fecal impaction, pATIENT DISIMPACTED WITH WHAT i COULD REACH Back: normal inspection Extremities: normal range of motion Neurologic/Psych: awake, alert, disoriented x 3 Skin: intact, normal color Core Measures ACS in differential dx? No Severe Sepsis Present: No Septic Shock Present: No (KINGSLEY STOKES) Progress Differential Diagnosis: bowel obstruction, cholecystitis, diverticulitis, ovarian torsion, PID/cervicitis, peptic ulcer, PUD/GERD, threatened AB, UTI/ pyelo, FECAL IMPACTION Plan of Care: Orders Procedure Date/time Status THYROID STIMULATING HORMONE 12/21 0615 Complete Therapeutic Activities 12/21 UNK Complete PT EVAL LOW COMPLEX 20 MIN 12/21 UNK Complete Gait Training 12/21 UNK Complete Discharge Patient 12/21 UNK Active Lab Add-on Test 12/21 UNK Active Initial ED EKG: normal intervals, normal p-waves, normal sinus rhythm, rate (94) , nonspecific ST T wave chg Prior EKG: unchanged Hand-Off Endorsed To: JALYN BARNETT MD Endorsed Time: 0100 Pending: other (case management) (KINGSLEY STOKES) Comments: 12/20/2016 2:30:23 AM patient signed out to me by PA at shift change person. Patient will be evaluated by case management in the morning given the family's concerns over the patient's ability to return home. 12/20/16 9:30am pt signed out to dr schafer. (JALYN BARNETT MD) Departure Departure Disposition: HOME OR SELF CARE Condition: Stable Clinical Impression Primary Impression: Fecal impaction Referrals: AGUSTIN DAVIS (PCP/Family) Departure Forms: Customer Survey General Discharge Information Comments 12/20/2016 12:59:54 AM Family wants to speak with case management in the morning about possible placement. Patient will be a hold over the emergency room until case management comes in in the morning. (KINGSLEY STOKES) Departure Prescriptions: Current Visit Scripts Polyethylene Glycol 3350 (Miralax) 1 PAC PO DAILY #2 PAC dissolve in water Docusate Sodium (Colace) 1 CAP PO BID PRN constipation #30 CAP PA/SPOOLER OPERATOR AUTOMATIC Co-Sign Statement Statement: ED Attending supervision documentation- [x] I saw and evaluated the patient. I have also reviewed all the pertinent lab results and diagnostic results. I agree with the findings and the plan of care as documented in the PA's/SPOOLER OPERATOR AUTOMATIC's documentation. [] I have reviewed the ED Record and agree with the PA's/SPOOLER OPERATOR AUTOMATIC's documentation. [] Additions or exceptions (if any) to the PAs/SPOOLER OPERATOR AUTOMATIC's note and plan are summarized below: [] (JALYN BARNETT MD) Admission Note Spoke With: NICHOLE FONTANEZ MD Documentation of Exam: Documentation of any treatments & extenuating circumstances including Concerns Regarding Discharge (functional status, medication knowledge or non-compliance, living conditions, etc.) that warrant an admission rather than observation: [ Notes. The patient has gait instability and is unable to ambulate. This has been a acute change in her baseline functioning., She was disimpacted manually by the PA continues to have abdominal discomfort, she is therefore being admitted to the hospital for IV hydration, evaluation and placement for short- term rehabilitation, consider GI consultation for evaluation of the obstipation and abdominal pain. (JALYN SCHAFER DO) (Namenda) Aspirin Buffered 81 MG DAILY 12/20 1019 UNVr (Ecotrin) Atorvastatin Calcium 20 MG DAILY 12/20 1019 UNVr (Lipitor) Hydrochlorothiazide 25 MG DAILY 12/20 1019 UNVr (Hydrodiuril) Losartan Potassium 50 MG DAILY 12/20 1019 UNVr (Cozaar) Laboratory Tests 12/20/16 0051: Urinalysis LIGHT H, Urine Color YEL, Urine Clarity HAZY H, Urine pH 6.5, Ur Specific [place] 1.020, Urine Protein TRACE H, Urine Ketones TRACE H, Urine Nitrite NEG, Urine Bilirubin NEG, Urine Urobilinogen 1.0, Ur Leukocyte Esterase NEG, Ur Microscopic SEDIMENT EXAMINED, Urine RBC 1-3, Urine WBC 1-3 H, Ur Epithelial Cells FEW, Urine Bacteria FEW H, Urine Mucus MOD H, Urine Hemoglobin NEG, Urine Glucose NEG 12/19/16 2224: Anion Gap 11, Estimated GFR 55 L, BUN/Creatinine Ratio 25.0, Glucose 125 H, Calcium 9.6, Total Bilirubin 0.8, AST 19, ALT 42, Alkaline Phosphatase 81, Troponin I < 0.01, Total Protein 6.6, Albumin 4.0, Globulin 2.6, Albumin/ Globulin Ratio 1.5, Amylase 50, Lipase 58, CBC w Diff NO MAN DIFF REQ, RBC 4.53, MCV 87.4, MCH 29.2, RDW 13.1, MPV 9.0, Gran % 83.1 H, Lymphocytes % 10.7 L, Monocytes % 4.9, Eosinophils % 1.1, Basophils % 0.2, Absolute Granulocytes 7.1 H, Absolute Lymphocytes 0.9 L, Absolute Monocytes 0.4, Absolute Eosinophils 0.1 , Absolute Basophils 0, PUBS MCHC 33.4 12/19/16 2144: Troponin I Cancelled Initial ED EKG: normal intervals, normal p-waves, normal sinus rhythm, rate (94) , nonspecific ST T wave chg Prior EKG: unchanged Hand-Off Endorsed To: JALYN BARNETT MD Endorsed Time: 99 Pending: other (case management) (KHURRAM ALONSO,KINGSLEY) Comments: 12/20/2016 2:30:23 AM patient signed out to me by PA at shift change person. Patient will be evaluated by case management in the morning given the family's concerns over the patient's ability to return home. 12/20/16 9:30am pt signed out to dr schafer. (ANIBAL ENRIQUEZ,JALYN Euceda) Departure Departure Disposition: HOME OR SELF CARE Condition: Stable Clinical Impression Primary Impression: Fecal impaction Referrals: AGUSTIN DAVIS (PCP/Family) Departure Forms: Customer Survey General Discharge Information Comments 12/20/2016 12:59:54 AM Family wants to speak with case management in the morning about possible placement. Patient will be a hold over the emergency room until case management comes in in the morning. (KINGSLEY STOKES) Admission Note Spoke With: NICHOLE FONTANEZ MD Documentation of Exam: Documentation of any treatments & extenuating circumstances including Concerns Regarding Discharge (functional status, medication knowledge or non-compliance, living conditions, etc.) that warrant an admission rather than observation: [ Notes. The patient has gait instability and is unable to ambulate. This has been a acute change in her baseline functioning., She was disimpacted manually by the PA continues to have abdominal discomfort, she is therefore being admitted to the hospital for IV hydration, evaluation and placement for short- term rehabilitation, consider GI consultation for evaluation of the obstipation and abdominal pain. (JALNY SCHAFER DO)
[2016-12-20] MEDS ORDERED: GOLYTELY SOLU4000 ML PO (00:53)
--- NOTE | 2016-12-20 01:16 | NUR ---
PT MEDICATED PER EMAR. PT WILL BE STAYING IN ED OVERNIGHT FOR CASE MGMT EVAL IN AM. PT'S DAUGHTER HAS GONE HOME AND WOULD LIKE TO BE KEPT UP TO DATE AT [phone].
--- NOTE | 2016-12-20 03:47 | NUR ---
PT RESTING COMFORTABLY ON STRETCHER. NORMAL RR NOTED. WILL CONTINUE TO MONITOR.
--- NOTE | 2016-12-20 04:43 | NUR ---
PT CONTINUES TO REST ON STRETCHER. NO DISTRESS NOTED. WILL CONTINUE TO MONITOR.
--- NOTE | 2016-12-20 05:20 | NUR ---
PT MOVED BOWELS. PT CLEANED UP. PT RESTING ON STRETCHER AWAKE.
--- NOTE | 2016-12-20 06:52 | NUR ---
PT EXPERIENCED SMALL BOWEL MOVEMENT. PT CLEANED AND SHEETS CHANGED.
--- NOTE | 2016-12-20 07:16 | NUR ---
REPORT GIVEN TO RODOLFO BECERRA.
--- NOTE | 2016-12-20 07:47 | NUR ---
INTRODUCED SELF TO PT, PT BEAGN TO CRY AND MUMBLE. PROVIDED COMFORT AND PT SETTLED DOWN.
--- NOTE | 2016-12-20 08:05 | NUR ---
PT'S DAUGHTER IN. GAVE HER MOM HER AM MEDICATIONS. DR BARNETT AWARE. DAUGHTER REPORTS GIVING EMS LIST OF MEDS. WILL RETURN WITH LIST.
--- NOTE | 2016-12-20 09:27 | NUR ---
DAUGHTER HERE, FEEDING PT. CASE MANAGEMENT (DOLLY), IN TO SPEAK WITH DAUGHTER.
--- NOTE | 2016-12-20 09:30 | NUR ---
12/20 CASE MGMT-MET WITH PT AND PT DAUGHTER- PT DAUGHTER STATES PT HAS BEEN WEAK AT HOME AND UNABLE TO AMBULATE AT TIMES. AWAITING AMBULATION TRIAL. CASE MGMT WILL CONTINUE TO FOLLOW.
--- NOTE | 2016-12-20 09:41 | NUR ---
PT UNABLE TO FOLLOW COMMANDS WITH USE OF WALKER, ASSIST OF 2 TO HELP STAND AND WALK TWO STEPS. DAUGHTER REPORTS THAT SHE RECENTLY FELL, HAS BRUISE ON RIGHT KNEE, NO DEFORMITY NOTED, GOOD ROM.
--- NOTE | 2016-12-20 10:16 | History & Physical ---
RAFI GARCIA MD 12/20/16 1016: General Information and HPI MD Statement: I have seen and personally examined SOILA JOE and documented this H&P. The patient is a 71 year old F who presented with a patient stated chief complaint of [abdominal pain and fall]. Source of Information: family, old records History of Present Illness: This is a 71-year-old , Bengali-speaking female with a past medical history of right nephrectomies status post kidney stones and kidney infection 10 years back, history of ischemic cardiomyopathy under care at [place], h/o of HTN and HLD,history of Alzheimer dementia who presented to the [facility] after she was brought into the emergency department by her family for chronic constipation for the last 1-1/2 week and weakness. The patient was brought to the emergency department 2 weeks week as well and was given enema after which she had a small bowel movement but did not have any bowel movement in the last 1-1/2 week. Her appetite remains the same and no changes in her diet was noted. She is demented at baseline and is being taken care of by her son and the [id number]-tpr at home. In the emergency department last night manual fecal disimpaction was attempted with moderate success. She is immobile at baseline and is dependent on her family for mbolization. The patient also had a mechanical fall 2 days back when she tried to get up from the bed on her own at 2:30 AM in the morning. The patient did not lose consciousness and hence no medical advice was seeked. To be noted that the patient's health care and medications are being monitored by a primary care physician in [place]. Since she has been in the [facility], 1 month back patient has set an appointment with Nereida Batista DO and visited her in the last week. She is in the process of being set up to see a aircraft painter apprentice for Alzheimer's dementia. Allergies/Medications Allergies: Coded Allergies: No Known Allergies (11/18/16) Home Med list Alprazolam 0.5 MG TABLET 1 TAB PO Q8 ANXIETY (Reported) Amlodipine Besylate 5 MG TABLET 1 TAB PO DAILY HEART (Reported) Aspirin (Ecotrin*) 81 MG TABLET.DR 1 TAB PO DAILY HEART HEALTH (Reported) Atorvastatin Calcium (Lipitor) 20 MG TABLET 1 TAB PO DAILY CHOLESTEROL ( Reported) Donepezil HCl (Aricept) 10 MG TABLET 1 TAB PO QPM DEMENTIA (Reported) Gabapentin 100 MG CAPSULE 1 CAP PO QPM NEUROPATHY (Reported) Galantamine HBr (Razadyne ER) 16 MG CAP24H.PEL 1 CAP PO DAILY UNKNOWN ( Reported) Hydrochlorothiazide 25 MG TABLET 1 TAB PO DAILY WATER PILL (Reported) Hyoscyamine (Levsin) 0.125 MG TABLET 1 TAB PO Q4 PRN ABDOMINAL DISCOMFORT Irbesartan (Avapro) 300 MG TABLET 1 TAB PO DAILY HEART (Reported) Lisinopril 20 MG TABLET 1 TAB PO DAILY HEART (Reported) Memantine HCl (Namenda) 10 MG TABLET 1 TAB PO BID ALZHEIMER (Reported) Nabumetone 750 MG TABLET 1 TAB PO BID ARTHRITIS (Reported) Ondansetron (Zofran Odt) 4 MG TAB.RAPDIS 1 TAB SL TID PRN NAUSEA Past History Travel History Traveled to [place] past 21 day No Medical History Neurological: Alzheimer's disease, dementia Cardiovascular: hypertension, hyperlipidemia Surgical History Surgical History: cholecystectomy, LEFT NEPHRECTOMY Past Family/Social History Family History Relations & Conditions if any MOTHER Relation not specified for: FH: hypertension Psychosocial History Where do you live? Home Who Do You Live With? child Services at Home: None Primary Language: Vietnamese Smoking Status: Never Smoked ETOH Use: denies use Review of Systems Review of Systems Constitutional: Reports: see HPI. EENTM: Reports: see HPI. Cardiovascular: Reports: see HPI. Respiratory: Reports: see HPI, cough. GI: Reports: abdominal pain, constipation. Genitourinary: Denies: discharge, dysuria, frequency, hematuria. Musculoskeletal: Denies: back pain, gout. Exam & Diagnostic Data Last 24 Hrs of Vital Signs/I&O Vital Signs Date Time Temp Pulse Resp B/P B/P Pulse O2 O2 Flow FiO2 Mean Ox Delivery Rate 12/20 1045 72 20 128/70 12/20 0911 98.2 88 18 115/64 97 Room Air 12/20 0700 97 Room Air 12/20 0654 96.8 85 18 122/61 98 Room Air 12/20 0443 96.9 82 18 131/70 97 Room Air 12/20 0330 80 18 132/74 97 Room Air 12/20 0123 97.2 80 18 138/72 97 Room Air 12/19 2130 96.6 99 18 145/76 96 Room Air Intake & Output 12/20 1600 12/20 0800 12/20 0000 Intake Total 0 Output Total Balance 0 Intake, Oral 0 Patient 185 lb Weight Weight Estimated Measurement Method Physical Exam General Appearance Cooperative, Moderate Distress, patient is in moderate distress due to abdominal pain, not able to follow understand commands (.) Skin No Rashes, No Breakdown Skin Temp/Moisture Exam: Warm/Dry Sepsis Skin Exam (color): Normal for Ethnicity, Cyanotic HEENT Atraumatic, PERRLA Neck Supple, No JVD Lymphatic Axillary nl, Cervical nl Cardiovascular Regular Rate, Normal S1, Normal S2 Abdomen slight tenderness on palpation normal bowel sounds Assessment/Plan Assessment: There is a 71-year-old female with a past medical history of hypertension hyperlipidemia right nephrectomy secondary to chronic kidney disease, advanced Alzheimer's dementia who presented to the [facility] for abdominal pain and weakness Vitals at the time of admission showed Blood pressure of 115/64, respiration rate of 18, pulse rate of 88,, saturation of 95% on room air Labs shows a normal hemoglobin and rest of cell lineage Chemistries shows normal sodium, low potassium of 3, BUN/creatinine of 25, creatinine 1.0 EKG shows normal sinus rhythm Abdominal CT did not show any acute pathology Assessment 1. Acute constipation: The patient most likely has constipation secondary to her advanced dementia as the fqtitoxz-jh-lgi has mentioned that she forgets to eat on and off and has to be fed requiring one-to-one care. Other possibility is the lack of exercise or reduced mobility as the patient is dependent on her family for mobilization 2. History of hypertension. On 3 antihypertensive medications, losartan amlodipine and hydrochlorothiazide 3. Weakness and recurrent falls: The falls described were mechanical and the patient needs physical therapy and rehabilitation 4. History of hyperlipidemia 5. History of questionable ischemic cardiomyopathy 6. History of advanced dementia of Alzheimer's 7. History of right nephrectomy 8.Hypokalemia. Likely from dehdrtaion Plan Admit to general medicine floor Iv hydration Acute Constipation for which will increase high fibre diet and iv hydration Replete potassium will start the patient on IV KCL D5 half Physical therapy Aggressive bowel regimen Avoid narcotics Hold losartan and amlodipine as the patient blood pressure is well controlled . Can c/w Lisinopril. Please obtain records from [facility] for patient's previous medical history, no records were found in the [employer] system. The patient should not be on 3 antihypertensive medications as the blood pressure is well controlled Kdur 20 meq and repeat potassium and BEP in the afternoon Patient is full code DVT prophylaxis with subcutaneous Lovenox Patient needs 3 nights of stay to qualify for short-term rehabilitation As Ranked By This Provider Problem List: 1. Fecal impaction 2. Constipation 3. Hypokalemia Core Measures/Miscellaneous Acute Coronary Syndrome ACS Diagnosis: No Cerebrovascular Accident CVA/TIA Diagnosis: No Congestive Heart Failure CHF Diagnosis: No Venous Thromboembolism VTE Risk Factors: Acute medical illness, Age > 40 No [facility] VTE prophylaxis d/t: VTE low risk, No contraindications No VTE Pharm Prophylaxis d/t: VTE low risk, No contraindications VTE Diagnosis: No VTE Type: NONE VTE Confirmed by (Test): NONE Severe Sepsis Severe Sepsis Present: No Septic Shock Septic Shock Present: No Miscellaneous Documentation Attending Case Discussed With: GEMMA JOSEPH M.D Primary Care Physician: AGUSTIN DAVIS Patient sees these Specialists none Level of Patient Care: General Medicine GEMMA JOSEPH MD 12/20/166: Attending MD Review Statement Attending Statement Attending MD Statement: examined this patient, discuss w/resident/PA/CHECK SERVICES CLERK, agreed w/resident/PA/CHECK SERVICES CLERK, discussed with family, reviewed EMR data (avail), discussed with nursing, amended to note Attending Assessment/Plan: Patient is a 71-year-old female with history of hypertension. She has been living in [place] until recently. Her daughters report that she left to live in [place] about 5 years ago. Prior to her leaving she was diagnosed with dementia and advised to stay [place] the [place]. She left a newly. Daughters report that 2 years later her dementia had advanced and she was mumbling her words. They did not follow-up with her until she was [place] the [place] a month ago by her boyfriend who could no longer take care of her. By this time she was bedbound, unable to maintain coherent conversation and had a very labile affect switching quickly from laughing to crying and then back again. They are unaware of any workup done for the patient in [place]. We are unaware of any workup done by her physician who diagnosed her with dementia 5 years ago. She has been having bouts of constipation. He has been evaluated in the ER recently. She presented again with another episode of constipation. Complained of abdominal discomfort that the bowels in several days. Attempt at disimpaction in the ER was successful so she was admitted for further management. She is currently awake and not in any acute distress. She was very jovial smiling and placing the hands of her family members. She is afebrile and hemodynamically stable. Heart sounds are regular. Lungs are clear bilaterally. Abdomen is distended soft and nontender with normal bowel sounds. She has no peripheral edema. Laboratory data is significant for mild hypokalemia. Recommendations: -Admit to the inpatient medical service. -Bowel regimen with MiraLAX, Senokot and bisacodyl for constipation. -She has received potassium orally for her hypokalemia. Discontinue IV fluid potassium supplementation. Repeat labs in the a.m. -In view of family's current inability to safely care for the mother she will likely require transition to [facility] facility prior to the adequate arrangements being made for the patient at home. -She is on 3 medications for blood pressure control. Her blood pressure is currently in the 120s. Recommend continuing only lisinopril for now with close monitoring of her blood pressure. -Avoid delirium triggers in this patient. Discontinue opioid analgesia. She is on Xanax at home when necessary anxiety. We'll monitor closely on his regimen. If she has any untoward effect recommend discontinuing. -She should follow-up with her geriatric appointment as an outpatient for dementia workup.
--- NOTE | 2016-12-20 10:47 | NUR ---
PT WAS GIVEN AM MEDS BY DAUGHTER.
--- NOTE | 2016-12-20 12:19 | NUR ---
bed 230-2
--- NOTE | 2016-12-20 12:30 | NUR ---
REPORT GIVEN TO ALIDA REYNOLDS
--- NOTE | 2016-12-20 12:54 | NUR ---
FED PT LUNCH, ATE ABOUT 75%, PO FLUIDS 400CC'S
[2016-12-20 13:50] VITALS: BP 110/70
[2016-12-20 14:56] VITALS: BP 120/74
[2016-12-20 22:36] VITALS: BP 128/70
[2016-12-21 07:04] VITALS: BP 134/80
--- NOTE | 2016-12-21 07:07 | PN- Housestaff ---
TERELL ENRIQUEZ,MEGHANN 12/21/16 0706: Subjective Follow-up For: chronic constipation causing impaction deconditioning progressive dementia Subjective: I saw and examined the patient today morning She is lying in the bed, so far had 3 bowel movements by that time. No acute concerns. Review of Systems Constitutional: Reports: see HPI. Comments: ROS negative except the above. Objective Last 24 Hrs of Vital Signs/I&O Vital Signs Date Time Temp Pulse Resp B/P B/P Pulse O2 O2 Flow FiO2 Mean Ox Delivery Rate 12/21 0704 97.6 75 20 134/80 97 Room Air 12/20 2236 98.3 90 20 128/70 93 Room Air 12/20 1456 97.7 66 20 120/74 95 12/20 1350 98.2 96 16 110/70 97 Room Air 12/20 1215 86 16 118/72 96 Room Air 12/20 1045 72 20 128/70 12/20 0911 98.2 88 18 115/64 97 Room Air Intake & Output 12/21 0800 12/21 0000 12/20 1600 Intake Total 240 600 800 Output Total Balance 240 600 800 Intake, IV 600 Intake, Oral 240 800 Number 1 1 1 Bowel Movements Patient 76.657 kg Weight Physical Exam General Appearance: Alert, Oriented X3, Cooperative Skin: No Rashes, No Breakdown HEENT: Atraumatic, PERRLA, EOMI Neck: Supple, No JVD Cardiovascular: Normal S1, Normal S2, No Murmurs Lungs: Clear to Auscultation, Normal Air Movement Abdomen: Normal Bowel Sounds, Soft, No Tenderness Neurological: Normal Gait, Normal Speech, Strength at 5/5 X4 Ext, Normal Tone Extremities: No Clubbing, No Cyanosis Vascular: Normal Pulses, Pulses Symmetrical Current Medications: Current Medications Sig/Isidoro Start time Last Medication Dose Route Stop Time Status Admin Acetaminophen 650 MG Q6P PRN 12/20 1030 AC PO Alprazolam 0.5 MG TIDPRN PRN 12/21 0023 AC PO 12/28 0022 Alprazolam 0.5 MG TID 12/20 1600 DC 12/20 PO 12/27 1559 2030 Amlodipine Besylate 5 MG DAILY 12/21 1000 CAN PO Aspirin Buffered 81 MG DAILY 12/20 1019 AC PO Atorvastatin Calcium 20 MG DAILY 12/20 1019 AC PO Bisacodyl 10 MG DAILY NEEDED PRN 12/20 2345 AC [place] Bisacodyl 10 MG ONCE ONE 12/20 1415 DC [place] 12/20 1416 Donepezil HCl 10 MG QPM 12/20 2200 AC 12/20 PO 203 Enoxaparin Sodium 40 MG DAILY 12/21 1000 DC SC Enoxaparin Sodium 40 MG DAILY 12/21 1000 DC SC Enoxaparin Sodium 40 MG DAILY 12/21 1000 AC SC Gabapentin 100 MG QPM 12/20 2200 AC 12/20 PO 203 Hydrochlorothiazide 25 MG DAILY 12/20 1019 DC PO Lisinopril 20 MG DAILY 12/20 1251 AC PO Losartan Potassium 50 MG DAILY 12/20 1019 DC PO Memantine 10 MG BID 12/20 1020 AC 12/20 PO 203 Morphine Sulfate 4 MG Q4P PRN 12/20 1030 DC IV Oxycodone/ 1 TAB Q6P PRN 12/20 1200 DC Acetaminophen PO Polyethylene Glycol 17 GM DAILY 12/20 1437 AC 12/20 PO 1559 Potassium Chloride 20 MEQ Q13H 12/20 1445 DC 12/20 Dextrose/Sodium 1,000 ML IV 1458 Chloride Potassium Chloride 20 MEQ ONCE ONE 12/20 1230 DC 12/20 PO 12/20 1231 1218 Potassium Chloride 0 .STK-MED ONE 12/20 1224 DC PO Potassium Chloride 20 MEQ Q13H 12/20 1130 DC Dextrose/Sodium 1,000 ML IV Chloride Senna/Docusate Sodium 2 TAB DAILY PRN 12/20 1445 AC PO Sodium Chloride 1,000 ML ONCE ONE 12/20 1400 CAN IV 12/21 0319 Last 24 Hrs of Lab/Percy Results Last 24 Hrs of Labs/Mics: Laboratory Tests 12/21/16 0700: TSH Cancelled 12/21/16 0615: Anion Gap 8, Estimated GFR > 60, BUN/Creatinine Ratio 17.5, TSH 1.240, CBC w Diff NO MAN DIFF REQ, RBC 4.24, MCV 87.5, MCH 29.1, RDW 13.0, MPV 9.7, Gran % 58.4, Lymphocytes % 28.8, Monocytes % 8.7, Eosinophils % 3.5, Basophils % 0.6, Absolute Granulocytes 2.9, Absolute Lymphocytes 1.4, Absolute Monocytes 0.4, Absolute Eosinophils 0.2, Absolute Basophils 0, PUBS MCHC 33.2 Assessment/Plan Assessment: There is a 71-year-old female with a past medical history of hypertension hyperlipidemia right nephrectomy secondary to chronic kidney disease, advanced Alzheimer's dementia who presented to the [facility] for abdominal pain and weakness Vitals at the time of admission showed Blood pressure of 115/64, respiration rate of 18, pulse rate of 88,, saturation of 95% on room air Labs shows a normal hemoglobin and rest of cell lineage Chemistries shows normal sodium, low potassium of 3, BUN/creatinine of 25, creatinine 1.0 EKG shows normal sinus rhythm Abdominal CT did not show any acute pathology Continue to monitor in observation Constipation - multifactorial leading to presumed impaction : Possibly secondary to irregular eating habits, dementia, immobility and anticholinergics, hypokalemia. Patient was aggressively treated with bowel regimen including miralax, senna, fleet enema resulting in 3 bowel movements overnight. She was on Donepezil 10mg at night, Memantine 10mg BID at home. She was cleared by PT to home and was discharged to home with miralax and colace. Hypokalemia K of 3.0 at admission, repleted - repeat improved to 3.4. Repleted today again. History of hypertension On 3 antihypertensive medications, losartan amlodipine and hydrochlorothiazide. we discontinued her HCTZ. Continued Norvasc 5mg and losartan 20mg -- informed to monitor BP at home. Tinea cruris in the breast region Started on nystatin powder. Gave a script to home. Chronic and stable conditions Anxiey: xanax 0.5mg TID Ischaemic cardiomyopathy: aspirin 81mg, atorvastatin 20mg DVT Prophylaxis * ALPS Code Status * Full Code Problem List: 1. Hypokalemia 2. Constipation Pain Ratin Pain Location: n/a Pain Goal: Pain 4 or less Pain Plan: tylenol prn Tomorrow's Labs & Rationales: none GEMMA JOSEPH MD 12/21/16 1319: Attending Review Statement Attending Statement Attending Statement: examined this patient, discuss w/resident/PA/OFFICE SERVICES SPECIALIST, agreed w/resident/PA/OFFICE SERVICES SPECIALIST, discussed with family, reviewed EMR data (avail), discussed with nursing, discussed with case mgmt, amended to note Attending Assessment/Plan: Patient seen and examined. Resting comfortably not in any obvious distress. No events overnight however this morning nursing staff reports that she was agitated and tearful. I did speak with the daughter the bedside this morning. She reports that although patient becomes emotional occasionally at home she does not become as agitated as she was this morning. Her increased agitation is likely secondary to her environment change. At this time family wishes to take the patient back home and return her to family environment. They feel that they will be able to take care of the patient better at home. She was seen by the physical therapy service and cleared for discharge home with services. Overnight she has moved her bowels following the bout regimen ordered. She will be discharged home on this regimen to use as needed. Her potassium level is improving. She will receive supplement today before discharge. She has been referred to an outpatient geriatric service for follow-up upon discharge. Family is in agreement with the plan of care. Blood pressure has been controlled here only on amlodipine. We'll discontinue her ARB and hydrochlorothiazide. Her blood pressure will monitored by the visiting nurse services upon discharge.
--- NOTE | 2016-12-21 07:07 | Discharge Summary ---
Visit Information Visit Dates Admission Date: 12/20/16 Hospital Course Allergies: Coded Allergies: No Known Allergies (11/18/16) Discharge Instructions Medications at Discharge Discharge Medications: Stop taking the following medications: Hyoscyamine (Levsin) 0.125 MG TABLET ORAL Every 4 hours as needed for ABDOMINAL DISCOMFORT Qty = 20 Continue taking these medications: Hydrochlorothiazide (Hydrochlorothiazide) 25 MG TABLET 1 Tablet ORAL DAILY Aspirin (Ecotrin*) 81 MG TABLET.DR 1 Tablet ORAL DAILY Alprazolam (Alprazolam) 0.5 MG TABLET 1 Tablet ORAL EVERY 8 HOURS Atorvastatin Calcium (Lipitor) 20 MG TABLET 1 Tablet ORAL DAILY Amlodipine Besylate (Amlodipine Besylate) 5 MG TABLET 1 Tablet ORAL DAILY Gabapentin (Gabapentin) 100 MG CAPSULE 1 Capsule ORAL Every night Memantine HCl (Namenda) 10 MG TABLET 1 Tablet ORAL TWICE DAILY Lisinopril (Lisinopril) 20 MG TABLET 1 Tablet ORAL DAILY Ondansetron (Zofran Odt) 4 MG TAB.RAPDIS 1 Tablet SUBLINGUAL THREE TIMES DAILY as needed for NAUSEA Qty = 10 Start taking the following new medications: Polyethylene Glycol 3350 (Miralax) 17 GRAM POWD.PACK 1 Packet ORAL DAILY Qty = 2 No Refills Instructions: dissolve in water Docusate Sodium (Colace) 100 MG CAPSULE 1 Capsule ORAL TWICE DAILY as needed for constipation Qty = 30 No Refills
[2016-12-21 08:07] LABS: ABSOLUTE BASOPHIL COUNT 0 /CUMM (0.0-0.2); ABSOLUTE EOSINOPHIL COUNT 0.2 /CUMM (0.0-0.7); ABSOLUTE GRANULOCYTE CT 2.9 /CUMM (1.4-6.5); ABSOLUTE LYMPH COUNT 1.4 /CUMM (1.2-3.4); ABSOLUTE MONOCYTE COUNT 0.4 /CUMM (0.10-0.60); BASOPHIL % 0.6 % (0.0-2.0); EOSINOPHIL % 3.5 % (0-5); GRANULOCYTE % 58.4 % (42.2-75.2); HEMATOCRIT 37.1 % (37-47); MEAN CORPUSCULAR HGB 29.1 PG (27.0-31.0); MEAN CORPUSCULAR HGB CONC 33.2 G/DL (33.0-37.0); MEAN CORPUSCULAR VOLUME 87.5 FL (81.0-99.0); MEAN PLATELET VOLUME 9.7 FL (7.4-10.4); PLATELET COUNT 217 /CUMM (130-400); RED BLOOD CELL CT 4.24 /CUMM (4.20-5.40)
--- NOTE | 2016-12-21 08:30 | NUR ---
PT CRYING THIS AM. ASSESSMENT WNL. ENRIQUEZ CAME IN TO SEE HER. WILL GIVE MEDICATIONS NEEDED.
--- NOTE | 2016-12-21 11:56 | Patient Discharge Instructions ---
Discharge Instructions General Discharge Information You were seen/treated for: constipation causing fecal impaction general deconditioning. Special Instructions: Please follow up with your PCP (Dr. Nava) in a week Please follow up regarding dementia with a geriatric service -Dr.McElhone ENRIQUEZ Diet Continue normal diet: Yes Recommended Diet: high fiber diet Activity Full Activity/No Limits: No Activity Self Limited: Yes Acute Coronary Syndrome Inclusion Criteria At DC or during hospital stay patient has or had the following: ACS DIAGNOSIS No Discharge Core Measures Meds if any: Prescribed or Continued at Discharge Meds if any: NOT Prescribed or Continued at Discharge Congestive Heart Failure Inclusion Criteria At DC or during hospital stay patient has or had the following: CHF DIAGNOSIS No Discharge Core Measures Meds if any: Prescribed or Continued at Discharge Meds if any: NOT Prescribed or Continued at Discharge Cerebrovascular accident Inclusion Criteria At DC or during hospital stay patient has or had the following: CVA/TIA Diagnosis No Discharge Core Measures Meds if any: Prescribed or Continued at Discharge Meds if any: NOT Prescribed or Continued at Discharge Venous thromboembolism Inclusion Criteria VTE Diagnosis No VTE Type NONE VTE Confirmed by (Test) NONE Discharge Core Measures - Per Current guidelines, there needs to be overlap - treatment for the first 5 days of Warfarin therapy. - If discharged on Warfarin prior to 5 days of - overlap therapy, the patient will need to be - assessed for post discharge needs including - *Post discharge parental anticoagulation - *Warfarin and/or parental anticoagulation education - *Follow up date to check INR post discharge At least 5 days overlap therapy as Inpatient No Meds if any: Prescribed or Continued at Discharge Note: Overlap Therapy is Warfarin and Anticoagulant Meds if any: NOT Prescribed or Continued at Discharge
[2016-12-21] MEDS ORDERED: COLACE100 M1 PO (13:16)
[2016-12-21] MEDS ORDERED: MIRALAX17 G1 PO (13:16)
--- NOTE | 2016-12-21 14:20 | Event Note ---
Event Note Event Note: Patient's condition has improved overnight. She has had 3 bowel movements. She is not in any discomfort at present. Family wishes to take patient home today. She is being changed from inpatient status to observation level of care. This has been explained to the patient by the renal case manager. The Utilization Review physician Dr. Richard Rodrigez is in agreement with this plan.
[2016-12-21 14:22] VITALS: BP 120/70
--- NOTE | 2016-12-21 14:28 | Event Note ---
Event Note Event Note: UR physician renew note. Patient's chart was evaluated regarding the need for admission. In view of the patient's family interest in having her discharged to home and the reason for her admission and the constipation has resolved agree with plans to reverse the admission and convert to observation
== END 2016-12-21 14:40 ==
LOC: ERH 21:20 → 2NA 12-20 10:49 → ERHI 12-20 10:49 → EDBEDREQ 12-20 11:09 → ENRESERV 12-20 12:12 → ENTRNSPT 12-20 12:33 → EDTRNSPTSTS 12-20 13:07 → EDTRNSPTTYP 12-20 13:07 → 2NA 12-20 13:23 → CMPTRNSPT 12-20 14:42 → ENPENDDIS 12-21 13:48 → 2NA 12-21 14:40
PROVIDERS: Internal Medicine Nephrology; Physician Assistant Medical; ADMIT Internal Medicine
DX: K56.41 Fecal impaction (principal); G30.9 Alzheimer's disease, unspecified; F02.80 Dementia in other diseases classified elsewhere, unspecified severity, without behavioral disturbance, psychotic disturbance, mood disturbance, and anxiety; I25.5 Ischemic cardiomyopathy; E78.5 Hyperlipidemia, unspecified; I12.9 Hypertensive chronic kidney disease with stage 1 through stage 4 chronic kidney disease, or unspecified chronic kidney disease; N18.9 Chronic kidney disease, unspecified; Z91.81 History of falling; E87.6 Hypokalemia; B35.6 Tinea cruris; F41.9 Anxiety disorder, unspecified
CPT/HCPCS: 2NASP; 74176; 81001; 82436; 93005; 93010; 96372; 96374; 97116-GO; 97161-GP; 97530-GO; J1650; J7042